=== PATIENT | female | born 1955 ===

== ENCOUNTER 2019-03-27 21:11 | Emergency (ER) | payer BC ==
--- NOTE | 2019-03-27 21:29 | UC ---
Laceration HPI - HPI Summary HPI Summary: 1/2 cm laceration/ (superfical ) to right lower leg--patient is on blood thinners and knowns she is a little high an is adjusting meds per pcp--Is he for a wedding and leg has had a small amount of oozing all day - History Of Current Complaint Chief Complaint: UCWounds Stated Complaint: LACERATION LEG Time Seen by Provider: 03/27/19 21:18 Hx Obtained From: Patient Laceration Location: Calf - right Mechanism Of Injury: Sharp Trauma Onset/Duration: Sudden Onset, Lasting Hours - 12 Severity: Mild PMH/Surg Hx/FS Hx/Imm Hx Previously Healthy: No Cardiovascular History: Cardiac Disease, Other - cabg, valve replacement Other History Of: Anticoagulant Therapy - Family History Known Family History: Positive: None - Social History Occupation: Retired Lives: With Family Alcohol Use: None Substance Use Type: None Smoking Status (MU): Never Smoked Tobacco Review of Systems All Other Systems Reviewed And Are Negative: Yes Constitutional: Positive: Negative Skin: Positive: Bruising - around superficial laceration Eyes: Positive: Negative ENT: Positive: Negative Respiratory: Positive: Negative Cardiovascular: Positive: Negative Genitourinary: Positive: Negative Motor: Positive: Negative Neurovascular: Positive: Negative Musculoskeletal: Positive: Negative Neurological: Positive: Negative Psychological: Positive: Negative Is Patient Immunocompromised?: No Physical Exam Triage Information Reviewed: Yes Appearance: Well-Appearing, No Pain Distress, Well-Nourished Vital Signs Reviewed: Yes Eye Exam: Normal Eyes: Positive: Conjunctiva Clear ENT Exam: Normal ENT: Positive: Normal ENT inspection, Hearing grossly normal. Negative: Trismus , Muffled voice, Hoarse voice Neck exam: Normal Neck: Positive: Supple, Nontender Respiratory Exam: Normal Respiratory: Positive: Chest non-tender, No respiratory distress, No accessory muscle use Cardiovascular Exam: Normal Cardiovascular: Positive: RRR, Pulses Normal, Brisk Capillary Refill Musculoskeletal Exam: Normal Musculoskeletal: Positive: Strength Intact, ROM Intact, No Edema Neurological Exam: Normal Neurological: Positive: Alert, Muscle Tone Normal Psychological Exam: Normal Psychological: Positive: Normal Response To Family Skin: Positive: Significant Lesion(s) - 1/2 cm laceraton back of right calf Laceration Repair - Laceration Repair 1 Description: Linear : No Repair Necessary Laceration Course/Dx - Course/Dx Course Of Treatment: gel form and fabiola wrap applied-follow with pcp - Diagnosis Provider Diagnosis: Superficial laceration Discharge - Sign-Out/Discharge Documenting (check all that apply): Patient Departure All imaging exams completed and their final reports reviewed: No Studies - Discharge Plan Condition: Stable Disposition: HOME Patient Education Materials: Laceration Without Closure (ED) Referrals: No Primary Care Phys,NOPCP [Primary Care Provider] - Additional Instructions: follow with pcp as needed - Billing Disposition and Condition Condition: STABLE Disposition: Home
[2019-03-27] MEDS ORDERED: Gelfoam 12-7 ADSORBABL SPONGE* 1 EA SPONGE TOPICAL ONE (21:30)
== END 2019-03-27 21:57 | disposition home or self-care (01) ==
LOC: UCEAST 21:11
DX: S81.811A Laceration without foreign body, right lower leg, initial encounter (principal); X58.XXXA Exposure to other specified factors, initial encounter; Y92.9 Unspecified place or not applicable; Z79.01 Long term (current) use of anticoagulants; Z95.1 Presence of aortocoronary bypass graft; Z95.2 Presence of prosthetic heart valve
CPT/HCPCS: 12001; 99201; A9270-GY; G0463